=== PATIENT | female | born 1985 | race African-American/Black ===

== ENCOUNTER 2016-09-27 15:08 | Emergency (ER) ==
[2016-09-27 15:18] VITALS: BP 112/64
--- NOTE | 2016-09-27 15:31 | PROVIDER DOCUMENTATION ---
HPI-Respiratory General - General Chief Complaint: General Adult Stated Complaint: 37 WKS PREG/SOB Time Seen by Provider: 09/27/16 15:26 Source: patient Allergies/Adverse Reactions: Patient Allergies Allergy/AdvReac Type Severity Reaction Status Date / Time cefprozil [From Cefzil] Allergy Intermediate WHELPS Verified 04/26/12 11:08 cephalexin monohydrate * Allergy Intermediate WHELPS Verified 04/26/12 11:08 [From Keflex] Sulfa (Sulfonamide Allergy Unknown Unknown Verified 04/26/12 11:07 Antibiotics) [Sulfa(Sulfonamide Antibiotics)] Home Medications: Home Medication List Medication Instructions Recorded Confirmed Last Taken Type No Home Medications 04/26/12 04/26/12 Unknown History - History of Present Illness-Resp Nature of Presenting Problem: Pt is 30 y/o F presents to the ED with SOB. Pt states SOB started last night. Pt states mild intermittent pain in suprapubic region. Pt denies other symptoms. Pt denies cough. Pt states she is 34 weeks . Quality of Pain: reports: tightness Severity in ED: reports: mild Onset/Duration: reports: last night Timing: reports: still present, intermittent Exposure: reports: unknown cause Cough Quality/Degree: reports: no cough Episode Frequency: no prior episodes Current Respiratory Medication Therapy: Initiated see nurses note Modifying Factors: improves with: nothing Associated Symptoms: reports: shortness of breath. denies: chest pain/soreness , cough, dizziness, earache, facial pain, fever/chills, flu-like symptoms, headache, heart racing, hurts to breathe, hyperventilating, lightheadedness, muscle/bodyaches, nasal congestion, nasal drainage, sinus pain, short of breath , sore throat, sweaty, wheezing Similar Symptoms Previously?: Yes Recently seen or treated by another doctor?: No Review of Systems - Adult - REVIEW OF SYSTEMS - ADULT Constitutional: denies: chills, fever Eyes: denies: blurred vision, double vision Ears, Nose, Mouth & Throat: denies: ear pain, nose pain, throat pain Cardiovascular: reports: irregular heart rate (tachy). denies: chest pain, heart murmur Respiratory: reports: shortness of breath. denies: cough, wheezing Gastrointestinal: denies: abdominal pain, diarrhea, nausea, vomiting Genitourinary: denies: dysuria, hematuria Musculoskeletal: denies: bone pain, joint pain, neck pain Integumentary: denies: hives, itching Neurological: denies: dizziness/vertigo, headache/migraines Psychiatric: reports: no symptoms reported Endocrine: reports: no symptoms reported Hematologic/Lymphatic: reports: no symptoms reported Allergic/Immunologic: reports: no symptoms reported All Other Systems: Reviewed and Negative Past History - Adult - PAST MEDICAL HISTORY-ADULT Review of Records: reports: Nursing Assessment Review, Medications Reviewed, Social history reviewed & non-contributory. Major Childhood Illnesses: reports: denies history Cardiovascular: reports: denies history Respiratory: reports: denies history Gastrointestinal: reports: denies history Obstetrical/Gynecological: reports: denies history Genitourinary: reports: denies history Musculoskeletal: reports: denies history Neurological: reports: denies history Endocrine/Immune: reports: denies history Other Conditions: reports: denies history - PRIOR SURGERIES/PROCEDURES Surgical/Procedure History: reports: - IMMUNIZATION STATUS Childhood Immunizations: See Nurse Assessment Flu Vaccine: See Nurse Assessment - FAMILY HISTORY Family History: reviewed, not pertinent - SOCIAL HISTORY Smoking: quit less than 1 year, cigarettes Provider spent 3-5 mins advising pt. on dangers of tobacco.: Discussed manners to quit use, and f/u contacts for add'l counseling. Substance Use: denies Living Situation: family Physical Exam-General - PHYSICAL EXAM-ADULT Initial Vital Signs Reviewed: Yes - CONSTITUTIONAL General Appearance: appears well, alert, mild distress - EYES Eyes: PERRL/EOMI, fundi clear, no AV nicking, pale conjunctivae - HEAD, EARS, NOSE, MOUTH & THROAT HENMT: normocephalic/atraumatic, moist mucous membranes, normal ENT inspection, TMs normal, pharynx normal - NECK Neck: non-tender, full range of motion, supple, normal inspection - RESPIRATORY Respiratory: chest non-tender, lungs clear, normal breath sounds, no pleuratic chest pain, no respiratory distress, no accessory muscle use - CARDIOVASCULAR Cardiovascular: normal peripheral pulses, no edema, no gallop, no JVD, no murmur , tachycardia - GASTROINTESTINAL (ABDOMEN) Abdominal Exam: normal bowel sounds, non tender, soft, no organomegaly, no pulsatile mass - LYMPHATIC Lymphatic: no adenopathy - MUSCULOSKELETAL Back Exam: normal inspection, no CVA tenderness, no vertebral tenderness Extremity: normal range of motion, non-tender, normal gait, normal inspection, no pedal edema, no calf tenderness - SKIN Integumentary: normal color, normal turgor, warm/dry - NEUROLOGIC Neurologic: electrical technician II-XII nml as tested, grossly normal, no motor/sensory deficits - PSYCHIATRIC Psych/Mental Status: normal mood/affect, normal thought content, normal thought process, oriented x 3 Progress - PLAN OF CARE/RESULTS Progress/Plan/Lab Results: Vital Signs - 24 hr 09/27/16 15:13 Temperature 98 F Pulse Rate 111 H Respiratory 19 Rate Blood Pressure 112/64 O2 Sat by Pulse 99 Oximetry Laboratory Tests 09/27/16 16:24 WBC 10.26 RBC 3.18 L Hgb 9.8 L Hct 29.0 L MCV 91.2 MCH 30.8 MCHC 33.8 RDW Std Deviation 11.8 Plt Count 245 MPV 10.8 H Immature Gran % (Auto) 0.5 Neut % (Auto) 69.1 Lymph % (Auto) 17.0 L [place] % (Auto) 11.5 H Eos % (Auto) 1.6 Baso % (Auto) 0.3 Immature Gran # (Auto) 0.05 H Neut # (Auto) 7.10 H Lymph # (Auto) 1.74 [place]o # (Auto) 1.18 H Eos # (Auto) 0.16 Baso # (Auto) 0.03 Orders Category Date Time Status CBC WITH DIFF [HEME] Stat Lab 09/27/16 16:24 Completed Departure - Departure Time of Disposition Order: 16:35 (Pt being d/c from ER to go to L&D for monitoring.) DIAGNOSIS: Intrauterine Anemia Qualifiers: Anemia type: unspecified type Qualified Code(s): D64.9 - Anemia, unspecified Disposition: OTHER 70 Certified Medical Emergency: Emergent Condition: Stable Additional Instructions: ED Follow Up Instructions: You have been treated by a care provider in the Emergency Department. These instructions are being provided to you so you can have an understanding of how to care for yourself upon discharge. Upon discharge from the Emergency Department, you are responsible for making arrangements for follow-up care by a physician of your choice. Take all prescribed medications as directed. Return to the Emergency Department immediately for any new or worsening symptoms. You may call the Physician Referral phone number at [phone] to obtain a list of Physicians who are taking new patients. Referrals: Stone Puentes MD [Primary Care Provider] - Attestation - Scribe Verification/Attestation Scribe:: Vanessa Shipley Acting as Scribe for:: Carrillo Huerta Scribe documention review:: This chart was documented by a scribe and accurately reflects the service the provider performed and the decisions made by the provider.
[2016-09-27 16:27] LABS: MANUAL DIFF NEEDED? NO
[2016-09-27 16:33] LABS: BASO% 0.3 % (0.0-0.8); EOS# 0.16 X1000 (0.0-0.7); EOS% 1.6 % (0.0-10.0); HEMOGLOBIN 9.8 g/dL (12.0-16.0); IMM GRAN# 0.05 X1000 (0.0-0.04); IMM GRAN% 0.5 % (0.0-0.5); LYMPH# 1.74 X1000 (1.2-3.4); MCH 30.8 PG (27-31); MCHC 33.8 g/dL (33-37); MCV 91.2 FL (81-99); MONO# 1.18 X1000 (0.11-0.59); MONO% 11.5 % (1.7-9.3); MPV 10.8 FL (7.4-10.4); NEUT% 69.1 % (42.2-75.2); PLT 245 X1000 (130-400); RBC 3.18 XMIL (4.2-5.4)
== END 2016-09-27 16:55 | disposition other institution (70) ==
LOC: P.ED 15:08
DX: O99.013 Anemia complicating pregnancy, third trimester (principal); Z3A.34 34 weeks gestation of pregnancy; O26.893 Other specified pregnancy related conditions, third trimester; R06.02 Shortness of breath; R10.30 Lower abdominal pain, unspecified; R00.0 Tachycardia, unspecified; Z87.891 Personal history of nicotine dependence
CPT/HCPCS: 85025; 99284

== ENCOUNTER 2016-11-26 05:17 | Inpatient (IN) ==
--- NOTE | 2016-11-25 13:23 | HISTORY AND PHYSICAL ---
ADMITTING DIAGNOSIS: Term , for repeat section SUMMARY: Trinidad Cage is a 31-year-old, 4, para 3. She is at term gestation. She has had 3 previous sections. She is requesting a repeat section. She understands the risks of surgery, including pain, bleeding, infection, bowel or bladder injury, and anesthesia complications. PAST MEDICAL AND SURGICAL HISTORY: Patient has had 3 pregnancies and 3 sections. She has no chronic medical or surgical illnesses. CURRENT MEDICATIONS: vitamins. ALLERGIES: Sulfa and cephalosporins. PHYSICAL EXAMINATION: VITAL SIGNS: Her weight is 150. Blood pressure 120/80. CARDIOVASCULAR: Regular rate and rhythm, without murmurs, rubs, gallops. PULMONARY: Clear. BREASTS: No masses. ABDOMEN: Gravid. PELVIC: Cervix is closed. EXTREMITIES: No clubbing, edema, or cyanosis. IMPRESSION: Term , for repeat section PLAN: Will proceed with repeat section. The risks, benefits, possible complications, and reasonable expectations of the surgeries have been discussed in detail. cc: Stone Puentes MD MTDD
[2016-11-26] MEDS ORDERED: REGLAN PO ONE (05:23)
[2016-11-26] MEDS ORDERED: PEPCID PO ONE (05:23)
[2016-11-26] MEDS ORDERED: BICITRA PO ONE (05:31)
[2016-11-26] MEDS ORDERED: PEPCID IV ONE (05:56)
[2016-11-26] MEDS ORDERED: SODIUM CHLORIDE 0.9% INJ ONE (05:56)
[2016-11-26] MEDS: LR 1,000 ML IV SCH ×2 (06:00→06:48)
[2016-11-26 06:23] LABS: MANUAL DIFF NEEDED? NO; URINE SOURCE VOIDED
[2016-11-26 06:34] LABS: BILIRUBIN URINE NEGATIVE (NEGATIVE); BLOOD URINE NEGATIVE (NEGATIVE); GLUCOSE URINE NEGATIVE (NEGATIVE); LEUKOCYTES URINE TRACE (NEGATIVE); NITRITE URINE NEGATIVE (NEGATIVE); PROTEIN URINE 1+(30 mg/dL) mg/dL (NEGATIVE); UROBILINOGEN URINE NORMAL
[2016-11-26 06:35] LABS: CLARITY CLEAR (CLEAR); COLOR YELLOW
[2016-11-26 06:39] LABS: UR AMPHETAMINES QUAL NONE DETECTED (NONE DETECT); UR BARBITUATES QUAL NONE DETECTED (NONE DETECT); UR BENZODIAZEPIN QUAL NONE DETECTED (NONE DETECT); UR CANNABINOIDS QUAL NONE DETECTED (NONE DETECT); UR COCAINE QUAL NONE DETECTED (NONE DETECT); UR MDMA QUAL NONE DETECTED (NONE DETECT); UR METHADONE QUAL NONE DETECTED (NONE DETECT); UR METHAMPHETAMINE QUAL NONE DETECTED (NONE DETECT); UR OPIATES QUAL NONE DETECTED (NONE DETECT); UR OXYCODONE QUAL NONE DETECTED (NONE DETECT); UR PCP QUAL NONE DETECTED (NONE DETECT); UR TCA QUAL NONE DETECTED (NONE DETECT)
[2016-11-26 06:47] LABS: BASO% 0.6 % (0.0-0.8); EOS# 0.17 X1000 (0.0-0.7); EOS% 1.9 % (0.0-10.0); HEMATOCRIT 29.2 % (37.0-47.0); HEMOGLOBIN 9.4 g/dL (12.0-16.0); IMM GRAN# 0.04 X1000 (0.0-0.04); IMM GRAN% 0.5 % (0.0-0.5); LYMPH# 1.91 X1000 (1.2-3.4); LYMPH% 21.5 % (20.5-51.1); MCH 26.8 PG (27-31); MCHC 32.2 g/dL (33-37); MCV 83.2 FL (81-99); MONO# 0.97 X1000 (0.11-0.59); MONO% 10.9 % (1.7-9.3); MPV 11.7 FL (7.4-10.4); NEUT% 64.6 % (42.2-75.2); PLT 223 X1000 (130-400); RBC 3.51 XMIL (4.2-5.4)
[2016-11-26] MEDS ORDERED: FLAGYL 500 MG/NS 500 MG/100 ML IVPB IV ONE (06:57)
[2016-11-26] MEDS ORDERED: CLINDAMYCIN 900 MG/NS 900 MG/50 ML IVPB IV ONE (07:00)
[2016-11-26] MEDS ORDERED: DURAMORPH ONE (07:12)
[2016-11-26] MEDS ORDERED: FENTANYL ONE (07:12)
[2016-11-26] MEDS ORDERED: PITOCIN ONE (07:12)
[2016-11-26] MEDS ORDERED: EPHEDRINE ONE (07:13)
[2016-11-26] MEDS ORDERED: PITOCIN 20 UNITS/LR 20 UNITS/1,000 ML IV.SOLN ONE (07:56)
[2016-11-26] MEDS ORDERED: BOOSTRIX VACCINE IM ONE (08:31)
[2016-11-26] MEDS ORDERED: DEMEROL PO PRN ×2 (08:31)
[2016-11-26] MEDS ORDERED: HYDROXYZINE IM PRN (08:31)
[2016-11-26] MEDS ORDERED: AMBIEN PO PRN (08:31)
[2016-11-26] MEDS ORDERED: PHENERGAN IM PRN (08:31)
[2016-11-26] MEDS ORDERED: M-M-R II VACCINE SUBQ ONE (08:31)
[2016-11-26] MEDS ORDERED: MYLICON PO PRN (08:31)
[2016-11-26] MEDS ORDERED: TORADOL IV SCH (08:31)
[2016-11-26] MEDS ORDERED: DULCOLAX PR PRN (08:31)
[2016-11-26] MEDS ORDERED: PITOCIN 20 UNITS/LR 20 UNITS/1,000 ML IV.SOLN IV ONE (08:31)
[2016-11-26] MEDS ORDERED: DEMEROL IM PRN (08:31)
[2016-11-26] MEDS ORDERED: CYTOTEC PO PRN (08:31)
[2016-11-26] MEDS ORDERED: NORCO-5 PO PRN (08:31)
[2016-11-26] MEDS ORDERED: NORCO-10 PO PRN (08:31)
[2016-11-26] MEDS ORDERED: PITOCIN IM PRN (08:31)
[2016-11-26] MEDS ORDERED: PERCOCET-5 PO PRN (08:31)
[2016-11-26] MEDS ORDERED: BENADRYL IV PRN (08:46)
[2016-11-26] MEDS ORDERED: ZOFRAN ODT PO PRN (08:46)
[2016-11-26] MEDS ORDERED: NARCAN INJ PRN (08:46)
[2016-11-26] MEDS ORDERED: ZOFRAN IV PRN ×2 (08:46→08:48)
[2016-11-26] MEDS: TORADOL IV PRN ×2 (10:07→19:29)
[2016-11-26] MEDS: DILAUDID IV PRN ×2 (10:33→15:34)
[2016-11-26] MEDS: PRECARE PO SCH (10:37)
[2016-11-26] MEDS: MYLICON PO SCH ×4 (10:37→21:12)
[2016-11-26] MEDS: PITOCIN 10 UNITS/LR 10 UNIT/1,000 ML IV.SOLN IV SCH ×2 (10:40→18:04)
--- NOTE | 2016-11-26 12:38 | OPERATIVE NOTE ---
PROCEDURE DATE: 11/26/2016 SURGEON: Stone Puentes MD OVERHEAD WORKER: Stone Molina MD ANESTHESIA: Spinal by Dr. Cutler. OPERATION PERFORMED: Repeat . PRINCIPAL DIAGNOSES: 1. Term . 2. Previous x3. POSTOPERATIVE DIAGNOSES: 1. Term . 2. Previous x3. FINDINGS: At 0741, at 6 pound 13 ounce male was delivered in a vertex presentation by repeat low transverse . There was a nuchal cord x3. Apgars were 9 at 1 minute, 9 at 5 minutes. SUMMARY: Patient was taken back to the operating room, where spinal anesthetic was placed and placed in supine position with left lateral tilt. Catheter was placed in the urinary bladder. The abdomen was prepped and draped in the usual fashion. Once satisfactory conduction anesthesia was demonstrated, a repeat Pfannenstiel incision was made. This incision was taken down to the fascia and the fascia was excised transversely. The underlying rectus muscles were bluntly and sharply dissected free. The rectus muscle was in midline peritoneum was entered. The lower uterine segment identified. The bladder flap was created. A low transverse incision was made across the myometrium. This incision was extended laterally using digital pressure. Membranes were ruptured revealing clear fluid. The 's head was delivered through this incision without difficulty. The nuchal cord x3 was reduced. The shoulders and body delivered without complications. The oropharynx was bulb suctioned. The cord was clamped and cut, was handed to the nurses for further care and evaluation. Cord blood was obtained. Placenta was manually removed. The uterus was delivered onto the abdominal wall and explored. All membrane fragments were removed. The myometrium was then reapproximated using a running #1 chromic interlocking suture, followed by several [id number] chromic sutures for complete hemostasis across the suture line. The uterus was placed back in the pelvic cavity. Uterine incision was reexamined and found to be hemostatic. Our first and second sponge, instrument, and needle counts were reported as correct at this time. The peritoneum was reapproximated using the interrupted chromic sutures. The fascia was closed using running Vicryl sutures x2. Our final sponge, instrument, and needle count report was correct. The skin edges reapproximated using senthil. Blood loss approximately 500 mL. There were no complications. The patient went to the recovery room in stable condition. cc: Stone Puentes MD
[2016-11-26] MEDS: ZOFRAN IV PRN (14:26)
[2016-11-26] MEDS: HYDROXYZINE PO PRN (21:12)
[2016-11-26] MEDS: PERICOLACE PO SCH (21:13)
[2016-11-27] MEDS: DILAUDID IV PRN (00:30)
[2016-11-27] MEDS: LR 1,000 ML IV SCH ×3 (01:53→17:51)
[2016-11-27] MEDS: HYDROXYZINE PO PRN ×2 (01:57→17:31)
[2016-11-27] MEDS: TORADOL IV PRN ×2 (04:09→11:52)
[2016-11-27 06:20] LABS: MCH 26.9 PG (27-31); MCV 84.2 FL (81-99); MPV 12.1 FL (7.4-10.4); RBC 2.97 XMIL (4.2-5.4)
[2016-11-27] MEDS: ZOFRAN IV PRN (07:48)
[2016-11-27] MEDS: PRECARE PO SCH (11:54)
[2016-11-27] MEDS: MYLICON PO SCH ×4 (11:54→21:12)
[2016-11-27] MEDS: PERCOCET-10 PO PRN (19:19)
[2016-11-27] MEDS: MOTRIN PO PRN (19:19)
[2016-11-27] MEDS: PERICOLACE PO SCH (21:12)
[2016-11-27] MEDS: FLEXERIL PO PRN (21:12)
[2016-11-28] MEDS: PERCOCET-10 PO PRN ×6 (00:17→22:25)
[2016-11-28] MEDS: MOTRIN PO PRN ×3 (04:05→22:25)
[2016-11-28] MEDS: LR 1,000 ML IV SCH (04:28)
[2016-11-28] MEDS: FLEXERIL PO PRN ×2 (04:36→12:07)
[2016-11-28] MEDS: PRECARE PO SCH (09:40)
[2016-11-28] MEDS: MYLICON PO SCH ×4 (09:41→20:43)
[2016-11-28] MEDS: PERICOLACE PO SCH (20:43)
[2016-11-29] MEDS: PERCOCET-10 PO PRN ×2 (03:04→11:37)
[2016-11-29] MEDS: MOTRIN PO PRN ×2 (08:13→16:05)
[2016-11-29] MEDS: FLEXERIL PO PRN ×2 (08:13→16:04)
[2016-11-29] MEDS: PRECARE PO SCH (08:15)
[2016-11-29] MEDS: MYLICON PO SCH ×3 (08:16→20:40)
[2016-11-29] MEDS: PERICOLACE PO SCH (20:40)
[2016-11-30] MEDS: MOTRIN PO PRN (02:30)
[2016-11-30 08:28] VITALS: BP 134/87
[2016-11-30] MEDS: PRECARE PO SCH (08:41)
[2016-11-30] MEDS: MYLICON PO SCH (08:41)
[2016-11-30] MEDS: FLEXERIL PO PRN (08:41)
[2016-11-30] MEDS ORDERED: BOOSTRIX VACCINE IM ONE (10:43)
--- NOTE | 2016-11-30 22:54 | DISCHARGE SUMMARY ---
ADMISSION DATE: 11/26/2016 DISCHARGE DATE: 11/30/2016 ADMITTING DIAGNOSES: Term , previous delivery. DISCHARGE DIAGNOSES: Status post 4 days, delivery. CONDITION: Stable. DIET: As tolerated. ACTIVITY: Routine postoperative and . INSTRUCTIONS: She is to follow up in [address] Puentes for staple removal. Take [place] and Motrin for pain. She is to continue vitamins with iron and a stool softener. Ms. Cage is without complaints this morning. PHYSICAL EXAMINATION: Vital Signs: Her vital signs are stable. She is afebrile. Neck: Supple. Lungs: Clear. Heart: Regular sinus rhythm. Abdomen: Soft. Incision is dry and intact. No erythema and no discharge. Extremities: No cyanosis, clubbing, or edema in her extremities. LABORATORY DATA: Hemoglobin from postoperative day 1 was 8. I have encouraged her to continue her vitamins with iron and stool softeners. cc: MD Stone Esposito MD
== END 2016-11-30 12:30 | disposition home or self-care (01) ==
LOC: P.LD 05:17
PROVIDERS: ADMIT Obstetrics & Gynecology; ATTEND Obstetrics & Gynecology